=== PATIENT | female | born 1940 | race Caucasian/White ===

== ENCOUNTER 2023-10-09 10:58 | Inpatient (IN) | payer BC ==
[~2023-10-09] VITALS: Ht 165.1 cm; Wt 73.6 kg
[2023-10-09 11:35] LABS: Basophils # (auto) 0.1 10 ^3/uL (0-0.2); Basophils % (auto) 0.8 % (0.0-2.0); Eosinophils # (auto) 0.2 10 ^3/uL (0-0.8); Eosinophils % (auto) 1.7 % (0.0-7.0); Hematocrit 42.3 % (36.0-46.0); Hemoglobin 14.9 g/dL (12.2-16.2); Lymphocytes # (auto) 1.7 10 ^3/uL (0.4-5.4); Lymphocytes % (auto) 15.6 % (10.0-50.0); Mean Corpuscular Hemoglobin 32.3 pg (28.0-32.0); Mean Corpuscular Hgb Conc. 35.2 g/dL (32.0-36.0); Mean Corpuscular Volume 91.6 fL (80.0-100.0); Monocytes % (auto) 9.3 % (0.0-12.0); Neutrophils # (auto) 7.7 10 ^3/uL (1.6-8.6); Neutrophils % (auto) 72.6 % (37.0-80.0); Nucleated Red Blood Cells % 0.1 %; Red Blood Cells 4.61 10^6/uL (4.0-5.20); White Blood Cell 10.6 10^3/uL (4.4-10.8)
[2023-10-09 11:36] LABS: Urine Bacteria FEW /hpf (None Seen); Urine Blood Negative /uL (Negative); Urine Budding Yeast OCCASIONAL /hpf (None Seen); Urine Clarity Clear (Clear); Urine Color Colorless (Yellow); Urine Protein, UAD Negative (Negative); Urine Specific Gravity 1.005 (1.001-1.035); Urine Urobilinogen Normal (Negative); Urine WBC 3 /hpf (0 - 5)
[2023-10-09] MEDS: SODIUM CHLORIDE 0.9% 500 ML IVB ONE (11:40)
[2023-10-09 11:56] LABS: Chloride 99 mmol/L (98-107); Potassium 3.2 mmol/L (3.5-5.1); Sodium 132 mmol/L (136-145)
[2023-10-09 11:57] LABS: Anion Gap 6 (5-15); Calcium 10.5 mg/dL (8.5-10.1); Carbon Dioxide 27 mmol/L (20-30)
[2023-10-09 12:02] LABS: Blood Urea Nitrogen 19 mg/dL (9-23); Glucose 95 mg/dL (74-106)
[2023-10-09 12:40] VITALS: PULSE 68; RESP 15; O2SAT 95
[2023-10-09] MEDS: POTASSIUM CHL 20 Meq TABLET PO ONE (13:14)
[2023-10-09] MEDS ORDERED: ACETAMINOPHEN 325 MG TAB PO PRN (13:15)
[2023-10-09] MEDS ORDERED: DOCUSATE SOD 100 MG CAP PO PRN (13:15)
[2023-10-09] MEDS ORDERED: ONDANSETRON HCL 4 MG/2 ML VIAL IV PRN (13:15)
[2023-10-09] MEDS: SODIUM CHLOR 0.9% PF (SALINE LOCK) 10ML VIAL/SYR IV SCH (15:34)
[2023-10-09] MEDS ORDERED: LATA0.008 EACHEYE (17:12)
[2023-10-09] MEDS ORDERED: ROSU10TA64 PO (17:12)
[2023-10-09] MEDS ORDERED: VALS160T84 PO (17:12)
[2023-10-09 18:44] VITALS: PULSE 67; RESP 18; O2SAT 96
[2023-10-09 18:46] VITALS: BP 117/62; PULSE 67; RESP 18; TEMP 98.1; O2SAT 96
[2023-10-09 18:57] VITALS: BP 117/62; PULSE 67; RESP 18; TEMP 98.1; O2SAT 96
[2023-10-09 20:00] VITALS: BP 121/71; PULSE 61; PULSE 74; RESP 18; TEMP 98.6; O2SAT 94
[2023-10-09 21:00] VITALS: BP 127/71; PULSE 61; RESP 18; TEMP 98.6; O2SAT 94
[2023-10-10] VITALS (8 sets, daily range): BP systolic 107–138; BP diastolic 40–71; PULSE 55–100; RESP 15–20; TEMP 97.1–98.6; O2SAT 92–97
[2023-10-10] MEDS: ENOXAPARIN SOD 40 MG/0.4 ML SYRINGE SC SCH (08:38)
[2023-10-10] MEDS: MECLIZINE HCL 25 MG TAB PO SCH (14:06)
[2023-10-10] MEDS: HYDROcodone-ACET 5/325MG TAB PO PRN (14:06)
[2023-10-10 23:05] LABS: Folate (Folic Acid) 12.13 ng/mL (>5.38)
[2023-10-10 23:06] LABS: Free T4 (Free Thyroxine) 0.72 ng/dL (0.89-1.76)
[2023-10-11 01:00] VITALS: BP 131/73; PULSE 68; RESP 17; TEMP 97.4; O2SAT 95
[2023-10-11 05:00] VITALS: BP 137/60; PULSE 64; RESP 16; TEMP 98.5; O2SAT 95
[2023-10-11 08:00] VITALS: PULSE 74
[2023-10-11 09:00] VITALS: BP_SYST 117; BP_SYST 142; BP_SYST 145; BP_DIAS 52; BP_DIAS 71; BP_DIAS 75; PULSE 66; PULSE 70; PULSE 73; RESP 18; TEMP 97.8; O2SAT 96
[2023-10-11 13:00] VITALS: BP 145/54; PULSE 75; RESP 18; TEMP 98; O2SAT 98
[2023-10-11] MEDS: CYANOCOBALAMIN (B-12) 1000 MCG/1 ML VIAL IM ONE (13:27)
[2023-10-11] MEDS: LEVOTHYROXINE SODIUM 88 MCG TAB PO ONE (13:28)
[2023-10-11 13:50] LABS: Chloride 106 mmol/L (98-107); Sodium 137 mmol/L (136-145)
[2023-10-11 13:51] LABS: Anion Gap 3 (5-15); Calcium 10.4 mg/dL (8.5-10.1); Carbon Dioxide 28 mmol/L (20-30)
[2023-10-11 13:56] LABS: BUN/Creatinine Ratio 13.3 (10.0-20.0); Blood Urea Nitrogen 13 mg/dL (9-23); Glucose 159 mg/dL (74-106)
[2023-10-11] MEDS ORDERED: CYAN-17 PO (15:11)
[2023-10-11] MEDS ORDERED: LEVO75CA3 PO (15:11)
[2023-10-12] MEDS ORDERED: LEVOTHYROXINE SODIUM 88 MCG TAB PO SCH (06:00)
== END 2023-10-11 17:20 | disposition home or self-care (01) | DRG 74 ==
LOC: ER 10:58 → TELE 13:07 → TELE-WESTW 18:33
PROVIDERS: ADMIT Internal Medicine; ATTEND Internal Medicine
DX: G90.8 Other disorders of autonomic nervous system (principal); E87.6 Hypokalemia; I10 Essential (primary) hypertension; E78.00 Pure hypercholesterolemia, unspecified; E03.9 Hypothyroidism, unspecified; E83.52 Hypercalcemia; Z90.710 Acquired absence of both cervix and uterus; Z81.8 Family history of other mental and behavioral disorders; Z79.899 Other long term (current) drug therapy
CPT/HCPCS: 36415; 70450; 70551; 71045; 80048; 81001; 82607; 82746; 83735; 84439; 84443; 85025; 93005; 93886; 97163; G0378

== ENCOUNTER 2023-10-13 08:18 | Emergency (ER) | payer BC ==
[~2023-10-13] VITALS: Ht 167.6 cm; Wt 66.6 kg
[~2023-10-13 08:18] MED LIST: CYAN-17 PO; LATA0.008 EACHEYE; LEVO75CA3 PO; ROSU10TA64 PO; VALS160T84 PO
[2023-10-13 08:40] VITALS: BP 130/72; RESP 18; O2SAT 95
[2023-10-13 08:49] VITALS: PULSE 75
[2023-10-13] MEDS ORDERED: ALPR0.25 PO (08:49)
== END 2023-10-13 16:23 | disposition left against medical advice (07) ==
LOC: ER 08:18
DX: F41.9 Anxiety disorder, unspecified (principal); E03.9 Hypothyroidism, unspecified; I10 Essential (primary) hypertension; E78.5 Hyperlipidemia, unspecified; Z90.710 Acquired absence of both cervix and uterus; Z79.899 Other long term (current) drug therapy
CPT/HCPCS: 82962; 93005

== ENCOUNTER 2023-10-18 17:55 | Inpatient (IN) | payer BC ==
[~2023-10-18] VITALS: Ht 157.5 cm; Wt 64.5 kg
[~2023-10-18 17:55] MED LIST changes: +ALPR0.25 PO
[2023-10-19] VITALS (7 sets, daily range): BP systolic 101–125; BP diastolic 43–64; PULSE 64–73; RESP 12–20; TEMP 97.8–98.4; O2SAT 93–100
[2023-10-19] MEDS ORDERED: ACETAMINOPHEN 325 MG TAB PO PRN (06:15)
[2023-10-19] MEDS ORDERED: ONDANSETRON HCL 4 MG/2 ML VIAL IV PRN (06:15)
[2023-10-19] MEDS ORDERED: HYDROcodone-ACET 5/325MG TAB PO PRN (06:15)
[2023-10-19] MEDS ORDERED: MORPHINE SULFATE INJ 2 MG/ml SYRG IV PRN (06:15)
[2023-10-19] MEDS ORDERED: NITROGLYCERIN 0.4 MG SL TAB SL PRN (06:15)
[2023-10-19 06:55] LABS: Basophils # (auto) 0 10 ^3/uL (0-0.2); Basophils % (auto) 0.3 % (0.0-2.0); Eosinophils # (auto) 0.2 10 ^3/uL (0-0.8); Eosinophils % (auto) 1.7 % (0.0-7.0); Hematocrit 41.3 % (36.0-46.0); Hemoglobin 14.3 g/dL (12.2-16.2); Lymphocytes # (auto) 1.4 10 ^3/uL (0.4-5.4); Lymphocytes % (auto) 14.5 % (10.0-50.0); Mean Corpuscular Hemoglobin 31.8 pg (28.0-32.0); Mean Corpuscular Hgb Conc. 34.5 g/dL (32.0-36.0); Mean Corpuscular Volume 92.2 fL (80.0-100.0); Monocytes # (auto) 1.3 10 ^3/uL (0-1.3); Neutrophils # (auto) 6.8 10 ^3/uL (1.6-8.6); Neutrophils % (auto) 70.5 % (37.0-80.0); Nucleated Red Blood Cells % 0.1 %; Red Blood Cells 4.48 10^6/uL (4.0-5.20); Red Cell Distribution Width 13.1 % (11.8-14.3); White Blood Cell 9.6 10^3/uL (4.4-10.8)
[2023-10-19 07:02] LABS: Alanine Aminotransferase 23 U/L (7-40); Albumin 3.5 g/dL (3.2-4.8); Alkaline Phosphatase 55 U/L (46-116); Anion Gap 5 (5-15); Aspartate Aminotransferase 30 U/L (13-40); BUN/Creatinine Ratio 10.3 (10.0-20.0); Blood Urea Nitrogen 7 mg/dL (9-23); Calcium 9.9 mg/dL (8.7-10.4); Carbon Dioxide 27 mmol/L (20-30); Chloride 103 mmol/L (98-107); Glucose 85 mg/dL (74-106); Potassium 3.1 mmol/L (3.5-5.1); Sodium 135 mmol/L (136-145)
[2023-10-19 07:03] LABS: Bilirubin, Total 0.6 mg/dL (0.2-1.0); Total Protein 5.6 g/dL (5.7-8.2)
[2023-10-19] MEDS: CYANOCOBALAMIN (B-12) 1000 MCG/1 ML VIAL IM ONE (09:26)
[2023-10-19] MEDS: ENOXAPARIN SOD 40 MG/0.4 ML SYRINGE SC SCH (09:35)
[2023-10-19] MEDS: MAGNESIUM OXIDE 400 MG TAB PO ONE ×2 (10:00→12:00)
[2023-10-19] MEDS: POTASSIUM CHL 20 Meq TABLET PO ONE (10:00)
[2023-10-19 10:37] LABS: Urine Bacteria None Seen /hpf (None Seen)
[2023-10-19 11:05] LABS: Urine Blood Negative /uL (Negative); Urine Clarity Clear (Clear); Urine Color Light-Yellow (Yellow); Urine Protein, UAD Negative (Negative); Urine Specific Gravity 1.025 (1.001-1.035); Urine Urobilinogen Normal (Negative); Urine WBC 2 /hpf (0 - 5); Urine pH 6.5 (5.0-9.0)
[2023-10-19] MEDS ORDERED: ATORVASTATIN 20 MG TAB PO SCH (22:00)
[2023-10-19] MEDS: ATORVASTATIN 20 MG TAB PO SCH (22:22)
[2023-10-20 01:00] VITALS: BP 108/59; PULSE 68; RESP 22; TEMP 98.1; O2SAT 100
[2023-10-20 05:00] VITALS: BP_SYST 110; BP_SYST 98; BP_DIAS 43; BP_DIAS 46; PULSE 60; RESP 18; TEMP 98; O2SAT 93
[2023-10-20] MEDS: LEVOTHYROXINE SODIUM 25 MCG TAB PO SCH (06:35)
[2023-10-20 07:32] LABS: Chloride 100 mmol/L (98-107); Potassium 3.7 mmol/L (3.5-5.1); Sodium 134 mmol/L (136-145)
[2023-10-20 07:33] LABS: Anion Gap 2 (5-15); Calcium 9.9 mg/dL (8.5-10.1); Carbon Dioxide 32 mmol/L (20-30)
[2023-10-20 07:38] LABS: BUN/Creatinine Ratio 10.8 (10.0-20.0); Blood Urea Nitrogen 8 mg/dL (9-23); Glucose 94 mg/dL (74-106)
[2023-10-20 07:39] LABS: Magnesium 2.1 mg/dL (1.6-2.6)
[2023-10-20 08:15] VITALS: PULSE 61; RESP 17; O2SAT 96
[2023-10-20 09:00] VITALS: BP 103/57; PULSE 61; RESP 17; TEMP 97.7; O2SAT 96
[2023-10-20 11:20] VITALS: BP 103/57; PULSE 61; RESP 17; TEMP 97.7; O2SAT 96
[2023-10-20 13:00] VITALS: BP 118/54; PULSE 65; RESP 16; TEMP 97.6; O2SAT 100
== END 2023-10-20 14:40 | disposition home health service (06) | DRG 312 ==
LOC: TELE-CENTR 10-19 03:25 → CENTRAL 10-19 12:57
PROVIDERS: ADMIT Internal Medicine; ATTEND Internal Medicine
DX: I95.1 Orthostatic hypotension (principal); I74.5 Embolism and thrombosis of iliac artery; I10 Essential (primary) hypertension; E03.9 Hypothyroidism, unspecified; F03.90 Unspecified dementia, unspecified severity, without behavioral disturbance, psychotic disturbance, mood disturbance, and anxiety; Z79.899 Other long term (current) drug therapy
CPT/HCPCS: 36415; 80048; 80053; 81001; 83735; 84443; 84484; 85025; 97116; 97163; 97530; G0378

== ENCOUNTER → 2023-10-23 | Emergency (ER) | payer BC ==
[~2023-10-23] VITALS: Ht 165.1 cm; Wt 59.1 kg
[~2023-10-23] MED LIST changes: -ALPR0.25 PO; +DIPHENOXYLATE W/ATROPINE 2.5 MG TAB PO ONE; +PIPERACILLIN-TAZOB 3.375GM 100 ML IV ONE; +SODIUM CHLORIDE 0.9% 1,000 ML IV ONE; -VALS160T84 PO
[2023-10-23 10:26] VITALS: BP 115/53; PULSE 72; RESP 16; O2SAT 92
[2023-10-23 13:49] LABS: Basophils # (auto) 0.1 10 ^3/uL (0-0.2); Basophils % (auto) 0.4 % (0.0-2.0); Eosinophils # (auto) 0 10 ^3/uL (0-0.8); Eosinophils % (auto) 0.2 % (0.0-7.0); Hematocrit 42.4 % (36.0-46.0); Hemoglobin 14.9 g/dL (12.2-16.2); Lymphocytes # (auto) 0.7 10 ^3/uL (0.4-5.4); Lymphocytes % (auto) 4.6 % (10.0-50.0); Mean Corpuscular Hemoglobin 32.7 pg (28.0-32.0); Mean Corpuscular Hgb Conc. 35.1 g/dL (32.0-36.0); Mean Corpuscular Volume 93.2 fL (80.0-100.0); Monocytes # (auto) 1.1 10 ^3/uL (0-1.3); Neutrophils # (auto) 13.6 10 ^3/uL (1.6-8.6); Neutrophils % (auto) 87.8 % (37.0-80.0); Red Blood Cells 4.55 10^6/uL (4.0-5.20); Red Cell Distribution Width 13.3 % (11.8-14.3); White Blood Cell 15.5 10^3/uL (4.4-10.8)
[2023-10-23 13:58] LABS: Chloride 100 mmol/L (98-107); Potassium 3.2 mmol/L (3.5-5.1); Sodium 131 mmol/L (136-145)
[2023-10-23 13:59] LABS: Anion Gap 2 (5-15); Calcium 9.8 mg/dL (8.5-10.1); Carbon Dioxide 29 mmol/L (20-30)
[2023-10-23 14:04] LABS: BUN/Creatinine Ratio 10.7 (10.0-20.0); Blood Urea Nitrogen 9 mg/dL (9-23); Glucose 104 mg/dL (74-106)
== END | disposition left against medical advice (07) ==
LOC: EDUNIT# 10:15 → EDBD 10:16 → ER 10:16
DX: K52.9 Noninfective gastroenteritis and colitis, unspecified (principal); E78.5 Hyperlipidemia, unspecified; I10 Essential (primary) hypertension; Z79.899 Other long term (current) drug therapy; Z90.710 Acquired absence of both cervix and uterus
CPT/HCPCS: 36415; 80048; 85025; 93005

== ENCOUNTER → 2023-11-11 | Outpatient (CLI) | payer BC ==
[~2023-11-11] MED LIST changes: -DIPHENOXYLATE W/ATROPINE 2.5 MG TAB PO ONE; -PIPERACILLIN-TAZOB 3.375GM 100 ML IV ONE; -SODIUM CHLORIDE 0.9% 1,000 ML IV ONE
[2023-11-11 08:38] LABS: Alanine Aminotransferase 17 U/L (7-40); Alkaline Phosphatase 72 U/L (46-116); Anion Gap 6 (5-15); BUN/Creatinine Ratio 9.4 (10.0-20.0); Blood Urea Nitrogen 8 mg/dL (9-23); Calcium 10.3 mg/dL (8.5-10.1); Carbon Dioxide 28 mmol/L (20-30); Chloride 105 mmol/L (98-107); Glucose 107 mg/dL (74-106); Potassium 3.9 mmol/L (3.5-5.1); Sodium 139 mmol/L (136-145)
[2023-11-11 08:40] LABS: Aspartate Aminotransferase 22 U/L (13-40)
[2023-11-11 08:41] LABS: Bilirubin, Total 0.6 mg/dL (0.2-1.0); Total Protein 6.1 g/dL (5.7-8.2)
[2023-11-12 08:06] LABS: Free Thyroxine Index 2.9 (1.2-4.9); Thyroxine (T4) 10.9 ug/dL (4.5-12.0)
== END | disposition home or self-care (01) ==
LOC: LAB 07:14
PROVIDERS: ATTEND Internal Medicine
DX: E03.9 Hypothyroidism, unspecified (principal); E83.52 Hypercalcemia
CPT/HCPCS: 36415; 80053; 84443

== ENCOUNTER → 2024-01-27 | Outpatient (CLI) | payer BC ==
[2024-01-27 07:18] LABS: Urine Bacteria None Seen /hpf (None Seen)
[2024-01-27 07:33] LABS: Basophils # (auto) 0 10 ^3/uL (0-0.2); Basophils % (auto) 0.5 % (0.0-2.0); Eosinophils # (auto) 0.2 10 ^3/uL (0-0.8); Eosinophils % (auto) 2.7 % (0.0-7.0); Hematocrit 52.3 % (36.0-46.0); Lymphocytes # (auto) 1.4 10 ^3/uL (0.4-5.4); Lymphocytes % (auto) 17.3 % (10.0-50.0); Mean Corpuscular Hemoglobin 32.5 pg (28.0-32.0); Mean Corpuscular Hgb Conc. 34.4 g/dL (32.0-36.0); Mean Corpuscular Volume 94.4 fL (80.0-100.0); Monocytes # (auto) 0.8 10 ^3/uL (0-1.3); Monocytes % (auto) 9.7 % (0.0-12.0); Neutrophils # (auto) 5.7 10 ^3/uL (1.6-8.6); Neutrophils % (auto) 69.8 % (37.0-80.0); Nucleated Red Blood Cells % 0.1 %; Platelet Count (auto) 279 10^3/uL (140-450); Red Blood Cells 5.54 10^6/uL (4.0-5.20); Red Cell Distribution Width 13.3 % (11.8-14.3); White Blood Cell 8.1 10^3/uL (4.4-10.8)
[2024-01-27 07:49] LABS: Alanine Aminotransferase 19 U/L (7-40); Albumin 4.3 g/dL (3.2-4.8); Alkaline Phosphatase 105 U/L (46-116); Anion Gap 6 (5-15); Aspartate Aminotransferase 13 U/L (13-40); BUN/Creatinine Ratio 13.1 (10.0-20.0); Blood Urea Nitrogen 11 mg/dL (9-23); Calcium 10.9 mg/dL (8.7-10.4); Carbon Dioxide 28 mmol/L (20-30); Chloride 108 mmol/L (98-107); Cholesterol 302 mg/dL (< 200); Glucose 104 mg/dL (74-106); HDL Cholesterol 41 mg/dL (40-59); LDL Cholesterol 233 mg/dL (< 100); Potassium 3.7 mmol/L (3.5-5.1); Sodium 142 mmol/L (136-145); Triglycerides 116 mg/dL (< 150)
[2024-01-27 07:50] LABS: Bilirubin, Total 1.1 mg/dL (0.2-1.0); Total Protein 6.8 g/dL (5.7-8.2)
[2024-01-27 08:10] LABS: Urine Blood TRACE /uL (Negative); Urine Clarity Clear (Clear); Urine Color Light-Yellow (Yellow); Urine Mucus FEW (None Seen); Urine Protein, UAD Negative (Negative); Urine Specific Gravity 1.016 (1.001-1.035); Urine Urobilinogen Normal (Negative); Urine WBC 1 /hpf (0 - 5); Urine pH 5.5 (5.0-9.0)
[2024-01-28 08:07] LABS: Thyroxine (T4) 10.8 ug/dL (4.5-12.0)
== END | disposition home or self-care (01) ==
LOC: LAB 07:02
PROVIDERS: ATTEND Internal Medicine
DX: I10 Essential (primary) hypertension (principal); E03.9 Hypothyroidism, unspecified; E78.00 Pure hypercholesterolemia, unspecified
CPT/HCPCS: 36415; 80053; 80061; 81001; 84443; 85025; 87086

== ENCOUNTER → 2024-07-31 | Outpatient (CLI) | payer BC ==
[2024-07-31 06:31] LABS: Urine Bacteria None Seen /hpf (None Seen)
[2024-07-31 07:09] LABS: Basophils # (auto) 0 10 ^3/uL (0-0.2); Basophils % (auto) 0.7 % (0.0-2.0); Eosinophils # (auto) 0.3 10 ^3/uL (0-0.8); Eosinophils % (auto) 4.5 % (0.0-7.0); Hematocrit 41.7 % (36.0-46.0); Hemoglobin 14.6 g/dL (12.2-16.2); Lymphocytes # (auto) 1.7 10 ^3/uL (0.4-5.4); Lymphocytes % (auto) 27.6 % (10.0-50.0); Mean Corpuscular Hemoglobin 32.7 pg (28.0-32.0); Mean Corpuscular Hgb Conc. 35.1 g/dL (32.0-36.0); Mean Corpuscular Volume 93.1 fL (80.0-100.0); Monocytes # (auto) 0.7 10 ^3/uL (0-1.3); Monocytes % (auto) 10.9 % (0.0-12.0); Neutrophils # (auto) 3.4 10 ^3/uL (1.6-8.6); Neutrophils % (auto) 56.3 % (37.0-80.0); Nucleated Red Blood Cells % 0.1 %; Platelet Count (auto) 230 10^3/uL (140-450); Red Blood Cells 4.47 10^6/uL (4.0-5.20); Red Cell Distribution Width 12.5 % (11.8-14.3)
[2024-07-31 07:18] LABS: Urine Blood Negative /uL (Negative); Urine Clarity Clear (Clear); Urine Color Light-Yellow (Yellow); Urine Protein, UAD Negative (Negative); Urine Specific Gravity 1.014 (1.001-1.035); Urine Squamous Epithelial Cell FEW /hpf (<5); Urine Urobilinogen Normal (Negative); Urine WBC 2 /HPF (0-5); Urine pH 6.5 (5.0-9.0)
[2024-07-31 07:34] LABS: Alanine Aminotransferase 20 U/L (7-40); Alkaline Phosphatase 98 U/L (46-116); Anion Gap 6 (5-15); Aspartate Aminotransferase 16 U/L (13-40); BUN/Creatinine Ratio 21.3 (10.0-20.0); Blood Urea Nitrogen 17 mg/dL (9-23); Calcium 10.4 mg/dL (8.7-10.4); Carbon Dioxide 30 mmol/L (20-31); Chloride 106 mmol/L (98-107); Glucose 94 mg/dL (74-106); Potassium 3.8 mmol/L (3.5-5.1); Sodium 142 mmol/L (136-145); Total Protein 6.5 g/dL (5.7-8.2); Triglycerides 87 mg/dL (< 150)
[2024-07-31 07:35] LABS: Albumin 4.2 g/dL (3.2-4.8); Bilirubin, Total 1.2 mg/dL (0.2-1.0); Cholesterol 184 mg/dL (< 200); HDL Cholesterol 45 mg/dL (40-59)
[2024-07-31 07:36] LABS: LDL Cholesterol 121 mg/dL (< 100)
[2024-08-01 08:07] LABS: Free Thyroxine Index 1.9 (1.2-4.9); Thyroxine (T4) 8.1 ug/dL (4.5-12.0)
== END | disposition home or self-care (01) ==
LOC: LAB 06:15
PROVIDERS: ATTEND Internal Medicine
DX: I10 Essential (primary) hypertension (principal); E03.9 Hypothyroidism, unspecified; E78.00 Pure hypercholesterolemia, unspecified; M54.9 Dorsalgia, unspecified; R53.1 Weakness
CPT/HCPCS: 36415; 80053; 80061; 81001; 84443; 85025; 87086